=== PATIENT | female | born 2000 | race Two or more races ===

== ENCOUNTER → 2020-08-13 | Outpatient (CLI) | payer OTHER ==
--- NOTE | 2020-08-13 15:14 | RAD ---
EXAM: Ultrasound OB Greater than 14 weeks INDICATION: Reason: Uterine Size Date Discrepancy / Spl. Instructions: / History: TECHNIQUE: Real-time obstetrical ultrasound was performed with permanent freeze-frame documentation. COMPARISON: None. FINDINGS: POSITION: Cephalic HEART RATE: 150 bpm APRIL: 11.6 cm PLACENTA: Posterior CERVICAL LENGTH: 4.8 cm MATERNAL UTERUS: Unremarkable. MATERNAL ADNEXA: Unremarkable. AGE/DATES: Gestational Age by LMP: 22 weeks 5 days Gestation Age by US: 23 weeks 0 days EDC by LMP: 12/12/2020 EDC by US: 12/10/2020 WEIGHT: 543 grams +/- 80 grams PERCENTILE WEIGHT: 42%. BIOMETRIC PARAMETERS: BPD: 5.7 cm corresponding with 23 weeks 3 days HC: 20.6 cm corresponding with 22 weeks 5 days AC: 17.4 cm corresponding with 22 weeks 2 days FL: 4.2 cm corresponding with 23 weeks 4 days ANATOMY: CARDIAC: Normal four chamber heart. UMBILICAL CORD: Normal 3 vessel cord. Normal cord insertion. BRAIN: Unremarkable. NOSE/LIPS: Unremarkable. SPINE: Unremarkable. EXTREMITIES: Unremarkable. STOMACH: Unremarkable. KIDNEYS: Unremarkable. BLADDER: Unremarkable. IMPRESSION: Normal OB ultrasound demonstrating a single viable fetus in cephalic position. Estimated gestational age of 23 weeks 0 days and EDC of December 10, 2020.. Electronically signed by: Jenniffer Granger MD (08/13/2020 3:12 PM) [id number]
== END | disposition home or self-care (01) ==
LOC: US 08:44
PROVIDERS: ATTEND Obstetrics & Gynecology
DX: O26.842 Uterine size-date discrepancy, second trimester (principal); Z3A.23 23 weeks gestation of pregnancy
CPT/HCPCS: 76805

== ENCOUNTER 2020-11-19 00:42 | Observation (INO) | payer OTHER ==
[2020-11-19] MEDS ORDERED: MAG HYDROX/ALUMINUM HYD/SIMETH 30 ML ORAL.SUSP PO PRN (01:00)
[2020-11-19] MEDS ORDERED: ACETAMINOPHEN 325 MG TABLET. PO PRN (01:00)
[2020-11-19] MEDS ORDERED: IV RINGERS,LACTATED 1000ML 1,000 ML IV SCH (01:00)
[2020-11-19 01:17] LABS: BILIRUBIN,URINE NEGATIVE (NEG); CLARITY,URINE CLOUDY; COLOR,URINE YELLOW; NITRITE,URINE NEGATIVE (NEG); PROTEIN,URINE 30 mg/dL (NEG-TRACE)
[2020-11-19 01:23] LABS: AMNIO PT NEGATIVE
[2020-11-19 01:25] LABS: BACTERIA,URINE MANY /HPF (0-FEW); RBC,URINE 0 /HPF (0-2); WBC,URINE >40 /HPF (0-4)
== END 2020-11-19 02:06 | disposition home or self-care (01) ==
LOC: 3 SO LND 00:42
PROVIDERS: ADMIT Obstetrics & Gynecology; ATTEND Obstetrics & Gynecology
DX: O62.9 Abnormality of forces of labor, unspecified (principal); Z3A.36 36 weeks gestation of pregnancy; Z79.899 Other long term (current) drug therapy
CPT/HCPCS: 36415; 59025; 81001; 84112; 87086; G0378; G0379

== ENCOUNTER → 2020-12-02 | Outpatient (CLI) | payer OTHER ==
[~2020-12-02] MED LIST: CEPH500C PO; DOCU-153 PO; IBUP-1027 PO; OXYC1TAB15 PO
== END ==
LOC: LAB 12:54
PROVIDERS: ATTEND Obstetrics & Gynecology
DX: Z20.828 Contact with and (suspected) exposure to other viral communicable diseases (principal)
CPT/HCPCS: U0003

== ENCOUNTER 2020-12-06 05:54 | Inpatient (IN) | payer OTHER ==
[~2020-12-06] VITALS: Ht 160 cm; Wt 108.0 kg
[2020-12-06] MEDS ORDERED: IV RINGERS,LACTATED 1000ML 1,000 ML IV PRN ×2 (06:00)
[2020-12-06] MEDS ORDERED: CITRIC ACID/SODIUM CITRATE 30 ML SOLUTION. PO ONE (06:00)
[2020-12-06 06:48] LABS: HEMATOCRIT 33.9 % (36.0-47.0); HEMOGLOBIN 11.1 g/dL (12.0-15.5); RED BLOOD COUNT 4.32 x10^6/uL (3.50-5.40); RED CELL DISTRIBUTION WIDTH 16.3 % (11.5-14.5); WHITE BLOOD COUNT 8.6 x10^3/uL (4.0-11.0)
--- NOTE | 2020-12-06 06:52 | PDOC1 ---
OB - History Hx of Present Care: Good Care Ultrasounds: Normal mid trimester US Obstetrical Complications: None Medical Complications: None Past Family/Social History * Past Medical, Surgical, Family and Obstetric Histories reviewed from chart. Rubella: Immune RPR/VDRL: Negative GBS Status: Positive HBsAG: Negative OB - Chief Complaint & HPI Date of Admission: Date of Admission: Dec 06, 2020 at 05:54 Chief Complaint/History : 2 Para: 1 EGA: 39 Reason for admission: section Indication for : desires repeat Admission Nurse Assessment Rev: Yes OB - Admission Exam Physical Exam HEENT: Normal Heart: Regular Rate Lungs: Clear Abdomen: Gravid, Non tender, Soft Extremities: Edema Reflexes: Normal Cervical Dilatation: None Effacement: 25% Station: -3 Membranes: Intact Accelerations: Accelerations Present Decelerations: No decelerations Contractions on Admission: None Text A: 39 wks IUP Previous c/s GBS positive P: ADmit repeat c/s. SHARON PRINCE Jr, MD Dec 06, 2020 06:52
[2020-12-06 06:54] VITALS: BP 139/87
[2020-12-06] MEDS ORDERED: ePHEDrine PF IN SALINE 50 MG/10 ML SYRINGE. IV ONE (07:41)
[2020-12-06] MEDS ORDERED: fentaNYL PF VIAL 100 MCG/2 ML VIAL ONE (07:41)
[2020-12-06] MEDS ORDERED: MORPHINE PF 10 MG/10 ML AMPUL. ONE (07:41)
[2020-12-06] MEDS ORDERED: OXYTOCIN 10 UNIT/ML VIAL. ONE (07:41)
[2020-12-06] MEDS ORDERED: PHENYLEPHRINE in 0.9% NACL PF 1 MG/10 ML SYRINGE. IV ONE (07:42)
[2020-12-06] MEDS ORDERED: ONDANSETRON PF 4 MG/2 ML VIAL. ONE (08:06)
--- NOTE | 2020-12-06 08:56 | PDOC4 ---
OB Operative Note Date: Dec 06, 2020 PRE OP DIAGNOSIS: Previoujs C- section POST OP DIAGNOSIS: Previous C- section OPERATION PERFORMED: R [facility] Surgeon Dr. Liao Anesthesia: Regional (Spinal) Blood Loss 600 ml Specimen placenta and OB Findings: Position (Vertex), Sex (Male), (8/9), Weight (8 Lb 9 oz), Nuchal Cord (x1) Complications none Additional Remarks pt. SHARON Kaur Jr, MD Dec 06, 2020 08:56
[2020-12-06] MEDS ORDERED: 0.9 % SODIUM CHLORIDE 10 ML DISP.SYRIN. IV PRN (09:00)
[2020-12-06] MEDS ORDERED: MAG HYDROX/ALUMINUM HYD/SIMETH 30 ML ORAL.SUSP PO PRN (09:00)
[2020-12-06] MEDS ORDERED: ONDANSETRON PF 4 MG/2 ML VIAL. IV PRN (09:00)
[2020-12-06] MEDS ORDERED: ZOLPIDEM 5 MG TABLET. PO PRN (09:00)
[2020-12-06] MEDS ORDERED: OXYTOCIN 30 UNIT/500 ML PREMIX 500 ML IV PRN (09:00)
[2020-12-06] MEDS ORDERED: SIMETHICONE 80 MG TAB.CHEW PO PRN (09:00)
[2020-12-06] MEDS ORDERED: diphenhydrAMINE ORAL ELIXIR 12.5 MG/5 ML ML PO PRN (09:00)
[2020-12-06] MEDS: MULTIVITAMIN with MINERAL TABLET. PO SCH (09:00)
[2020-12-06] MEDS ORDERED: OXYTOCIN PREMIX 30 UNIT/500 ML NS BAG. IV ONE (09:15)
--- NOTE | 2020-12-06 09:16 | OP ---
DATE OF SURGERY: 12/06/2020 PREOPERATIVE DIAGNOSES: 1. A 39 weeks intrauterine . 2. Previous section. POSTOPERATIVE DIAGNOSES: 1. A 39 weeks intrauterine . 2. Previous section. PROCEDURE: Repeat low transverse section. SURGEON: Sharon Liao MD ANESTHESIA: Spinal. ESTIMATED BLOOD LOSS: 600 mL. COMPLICATIONS: None. FINDINGS: Viable male infant, Apgars 8 and 9, weight 8 pounds 9 ounces, nuchal cord x 1, 3-vessel cord placenta delivered manually intact. SUMMARY: A 20-year-old 2, para 1 at 39 weeks, presented for repeat section. She was counseled on risks, benefits and expectations and voiced clear understanding to proceed. DESCRIPTION OF PROCEDURE: The patient was taken to surgery suite and placed in dorsal supine position. She was prepped with ChloraPrep and draped in sterile fashion. After adequate anesthesia, Pfannenstiel skin incision was made with scalpel down to and through the fascia. Fascia was excised laterally using curved Noguera scissors. The fascia was incised laterally using curved Noguera scissors. The superior edge of fascia was grasped with two Donavon clamps and dissected free of the abdominal rectus muscles using blunt dissection along with Bovie cautery. The same process took place inferiorly. The abdominal rectus muscles were then dissected using sharp dissection using curved Noguera scissors as well as the peritoneum. The Olaf ring retractor was then placed. A low transverse hysterotomy incision was made with scalpel down to the amniotic sac. Hysterotomy incision was extended laterally and superiorly digitally. Amniotomy was performed with Allis clamp which elicited moderate amount of clear fluid. With the aid of fundal pressure, the 's head was delivered in a smooth atraumatic manner. Nuchal cord x 1 was visualized and reduced. With additional fundal pressure, the anterior shoulder was delivered followed by posterior shoulder and rest of the male infant was delivered. The infant was suctioned with bulb syringe orally and nasally, umbilical cord was clamped twice and cut. Viable male infant was handed to waiting nursing staff. Umbilical cord blood was then obtained. Three-vessel cord placenta was delivered manually intact. The uterus was then exteriorized and cleared of clot and debris with moist lap. Hysterotomy incision was reapproximated using #1 Vicryl suture in running locked fashion, imbricated layer of #1 Vicryl suture was utilized in a running fashion for better hemostasis. The uterus palpated firm. Fallopian tubes and ovaries appeared normal bilaterally. Posterior cul-de-sac was cleared of clot and debris with moist lap. The uterus was then returned to the abdomen. The pericolic gutters were cleared of clot and debris with moist lap. Hysterotomy incision was reviewed. There was a Vkvxpn-pe-pucgo suture placed in the midline of the hysterotomy incision for better hemostasis. The Olaf ring retractor was removed. The peritoneum was reapproximated using 1 Vicryl suture in running fashion. Abdominal rectus muscle was reapproximated using 1 Vicryl suture in running fashion. Fascia was reapproximated using Stratafix in running fashion. The subcutaneous space was reapproximated using 1 Vicryl suture in running fashion. The skin was reapproximated using 4-0 Vicryl suture in subcuticular manner. The patient tolerated the procedure well and was taken to recovery room in stable condition. Sponge and needle count correct x 3. SHARON LIAO MD DR: SHLOMO/mike JOB#: [id number] / [id number]
[2020-12-06] MEDS: KETOROLAC 30 MG/ML VIAL. IV PRN ×2 (10:25→21:23)
[2020-12-06] MEDS ORDERED: KETOROLAC 30 MG/ML VIAL. IV PRN (11:00)
[2020-12-06 11:15] VITALS: BP 133/72
[2020-12-06 11:45] VITALS: BP 131/81
[2020-12-06 13:00] VITALS: BP 129/83
[2020-12-06 18:27] VITALS: BP 132/78
[2020-12-06 21:00] VITALS: BP 135/85
[2020-12-07 01:30] VITALS: BP 118/66
[2020-12-07 05:15] VITALS: BP 113/64
--- NOTE | 2020-12-07 07:09 | PDOC ---
OB Progress Note Date of Service 12/07/20 Time of Evaluation 0705 Notes Pt. feeling well. Pain controlled. No complaints. Lab Laboratory Tests Test 12/06/20 06:30 White Blood Count 8.6 x10^3/uL (4.0-11.0) Red Blood Count 4.32 x10^6/uL (3.50-5.40) Hemoglobin 11.1 g/dL (12.0-15.5) Hematocrit 33.9 % (36.0-47.0) Mean Corpuscular Volume 79 fL (79-100) Mean Corpuscular Hemoglobin 26 pg (25-35) Mean Corpuscular Hemoglobin Concent 33 g/dL (31-37) Red Cell Distribution Width 16.3 % (11.5-14.5) Platelet Count 269 x10^3/uL (140-400) Treponema pallidum Antibody Nonreactive (Nonreactive) Medications Current Medications Ringer's Solution 1,000 ml @ 1,000 mls/hr Q1H PRN IV hydration Last administered on 12/06/20at 18:15; Start 12/06/20 at 06:00 Ringer's Solution 1,000 ml @ 125 mls/hr Q8H PRN IV hydration; Start 12/06/20 at 06:00 Cefazolin Sodium/ Dextrose 50 ml @ 100 mls/hr 1X ONCE IV ; Start 12/06/20 at 06:00; Stop 12/06/20 at 06:29; Status DC Citric Acid/ Sodium Citrate (Bicitra) 30 ml 1X ONCE PO Last administered on 12/06/20at 07:17; Start 12/06/20 at 06:00; Stop 12/06/20 at 06:02; Status DC Ephedrine Sulfate (ePHEDrine PF IN SALINE SYRINGE) 50 mg STK-MED ONCE IV ; Start 12/06/20 at 07:41; Stop 12/06/20 at 07:41; Status DC Fentanyl Citrate (Fentanyl 2ml Vial) 100 mcg STK-MED ONCE .ROUTE ; Start 12/06/20 at 07:41; Stop 12/06/20 at 07:41; Status DC Morphine Sulfate (Morphine Preservative Free) 10 mg STK-MED ONCE .ROUTE ; Start 12/06/20 at 07:41; Stop 12/06/20 at 07:41; Status DC Oxytocin (Pitocin) 10 unit STK-MED ONCE .ROUTE ; Start 12/06/20 at 07:41; Stop 12/06/20 at 07:42; Status DC Phenylephrine HCl (PHENYLEPHRINE in 0.9% NACL PF) 1 mg STK-MED ONCE IV ; Start 12/06/20 at 07:42; Stop 12/06/20 at 07:42; Status DC Ondansetron HCl (Zofran) 4 mg STK-MED ONCE .ROUTE ; Start 12/06/20 at 08:06; Stop 12/06/20 at 08:07; Status DC Sodium Chloride (Normal Saline Flush) 3 ml QSHIFT PRN IV AFTER MEDS AND BLOOD DRAWS; Start 12/06/20 at 09:00 Oxytocin 500 ml @ 125 mls/hr CONT PRN IV EXCESSIVE POST- BLEEDING; Start 12/06/20 at 09:00; Stop 12/06/20 at 16:59; Status DC Ibuprofen (Motrin) 800 mg PRN Q8HRS PRN PO INFLAMMATION; Start 12/06/20 at 09:00 Ondansetron HCl (Zofran) 4 mg PRN Q6HRS PRN IV NAUSEA/VOMITING; Start 12/06/20 at 09:00 Docusate Sodium (Colace) 100 mg PRN BID PRN PO CONSTIPATION; Start 12/06/20 at 09:00 Al Hydroxide/Mg Hydroxide (Mylanta Plus Xs) 30 ml PRN Q4HRS PRN PO HEARTBURN / GAS; Start 12/06/20 at 09:00 Simethicone (Gas-X) 80 mg PRN AFTMEALHC PRN PO GAS / BLOATING; Start 12/06/20 at 09:00 Diphenhydramine HCl (Benadryl Oral Elixir) 12.5 mg PRN Q6HRS PRN PO ITCHING; Start 12/06/20 at 09:00 Ferrous Sulfate (Feosol) 325 mg BIDWMEALS PO ; Start 12/06/20 at 17:00 Zolpidem Tartrate (Ambien) 5 mg PRN QHS PRN PO INSOMNIA, MAY REPEAT X1; Start 12/06/20 at 09:00 Oxycodone/ Acetaminophen (Percocet 5/325) 2 tab PRN Q4HRS PRN PO MODERATE PAIN, SEVERE PAIN; Start 12/06/20 at 09:00 Ketorolac Tromethamine (Toradol 30mg Vial) 30 mg PRN Q6HRS PRN IV INFLAMMATION/PAIN Last administered on 12/06/20at 21:23; Start 12/06/20 at 09:00; Stop 12/11/20 at 08:59 Multivitamins (Thera M Plus) 1 tab DAILY PO ; Start 12/06/20 at 09:00 Ketorolac Tromethamine (Toradol 30mg Vial) 30 mg PRN Q6HRS PRN IV PAIN; Start 12/06/20 at 11:00; Stop 12/11/20 at 10:59 Exam ABd: soft, mild tenderness, fundus firm Bandage removed. Incision site: clean, dry and intact Assessment POD#1 s/p repeat c/s Plan of Care: Continue current Tx, Mgmt SHARON PRINCE Jr, MD Dec 07, 2020 07:09
[2020-12-07] MEDS: FERROUS SULFATE 325 MG TABLET. PO SCH ×2 (08:00→17:00)
[2020-12-07 08:12] LABS: BASO # 0.1 x10^3/uL (0.0-0.2); BASO % 1 % (0-3); EOS # 0.2 x10^3/uL (0.0-0.7); EOS % 2 % (0-3); HEMATOCRIT 29.8 % (36.0-47.0); HEMOGLOBIN 9.8 g/dL (12.0-15.5); LYMPH % 22 % (24-48); MEAN CORPUSCULAR HEMOGLOBIN 26 pg (25-35); MEAN CORPUSCULAR HGB CONC 33 g/dL (31-37); MEAN CORPUSCULAR VOLUME 78 fL (79-100); MONO # 0.6 x10^3/uL (0.0-1.1); MONO % 7 % (0-9); NEUT # 6.2 x10^3/uL (1.8-7.7); NEUT % 69 % (31-73); PLATELET COUNT 243 x10^3/uL (140-400); RED BLOOD COUNT 3.82 x10^6/uL (3.50-5.40); RED CELL DISTRIBUTION WIDTH 16.5 % (11.5-14.5)
[2020-12-07] MEDS: DOCUSATE SODIUM 100 MG CAPSULE. PO PRN (08:14)
[2020-12-07] MEDS: IBUPROFEN 400 MG TABLET. PO PRN ×2 (08:15→17:10)
[2020-12-07] MEDS: MULTIVITAMIN with MINERAL TABLET. PO SCH (08:15)
[2020-12-07] MEDS: oxyCODONE/APAP 5/325 1 TAB TABLET PO PRN ×2 (08:16→17:10)
[2020-12-07 12:15] VITALS: BP 133/90
[2020-12-07 18:13] VITALS: BP 145/87
--- NOTE | 2020-12-07 18:30 | NUR ---
Ibuprofen 800mg and 1 percocet scanned and given to patient but did not save.
[2020-12-07 22:52] VITALS: BP 129/88
[2020-12-08 06:08] VITALS: BP 130/86
[2020-12-08] MEDS: FERROUS SULFATE 325 MG TABLET. PO SCH ×2 (08:00→17:00)
[2020-12-08] MEDS: DOCUSATE SODIUM 100 MG CAPSULE. PO PRN (08:05)
[2020-12-08] MEDS: IBUPROFEN 400 MG TABLET. PO PRN ×2 (08:05→18:02)
[2020-12-08] MEDS: MULTIVITAMIN with MINERAL TABLET. PO SCH (08:05)
[2020-12-08] MEDS: oxyCODONE/APAP 5/325 1 TAB TABLET PO PRN ×3 (08:06→18:02)
[2020-12-08 10:20] VITALS: BP 130/88
[2020-12-08 16:50] VITALS: BP 135/85
--- NOTE | 2020-12-08 17:42 | PDOC3 ---
OB DISCHARGE SUMMARY DATE OF ADMISSION: 12/06/20 DATE OF DISCHARGE: 12/08/20 REASON FOR ADMISSION: section INTRAPARTUM PROCEDURES: : Low Cerv Trans DISCHARGE DIAGNOSIS: Term Delivered DISCHARGE INFORMATION: Activity (ad zaki), Diet (regular), Instructions (pelvic rest x 6 wks, no driving x 2 wks, no lifting > 20 lbs. x 4 wks) HOSPITAL COURSE Term gestation delivered section without complications. SHARON PRINCE Jr, MD Dec 08, 2020 17:42
[2020-12-08] MEDS ORDERED: IBUP-1027 PO (17:45)
[2020-12-08] MEDS ORDERED: DOCU-153 PO (17:45)
[2020-12-08] MEDS ORDERED: OXYC1TAB15 PO (17:45)
--- NOTE | 2020-12-08 17:45 | DISCH ---
DISCHARGE INSTRUCTIONS Condition on Discharge Condition on Discharge: Stable Activity After Discharge Activity Instructions for Disc: Activity as tolerated Lifting Instructions after Dis: No heavy lifting Driving Instructions after Dis: No driving for 2 weeks Diet after Discharge Diet after Discharge: Regular Contacting the DRNito after DC Call your doctor for: Concerns you may have Follow-Up Follow up with: Dr. Liao in 2 wks SHARON LIAO Jr, MD Dec 08, 2020 17:45
--- NOTE | 2020-12-08 18:30 | NUR ---
Discharge and follow up instructions reviewed and given to pt along with Rx X3. Pt denied any questions or complaints at this time. Pt taken out of the hospital per W/C with staff by her side.
== END 2020-12-08 18:30 | disposition home or self-care (01) | DRG 787 ==
LOC: 3 SO LND 05:54 → 3 NORTH 11:42
PROVIDERS: ADMIT Obstetrics & Gynecology; ATTEND Obstetrics & Gynecology
PROC: 10D00Z1 Extraction of Products of Conception, Low, Open Approach (ICD-10-PCS; principal; 2020-12-06)
DX: O34.211 Maternal care for low transverse scar from previous cesarean delivery (principal); O98.82 Other maternal infectious and parasitic diseases complicating childbirth; Z3A.39 39 weeks gestation of pregnancy; O99.824 Streptococcus B carrier state complicating childbirth; Z37.0 Single live birth; O69.81X0 Labor and delivery complicated by cord around neck, without compression, not applicable or unspecified; B95.1 Streptococcus, group B, as the cause of diseases classified elsewhere
CPT/HCPCS: 36415; 85025; 85027; 86592; 86850; 86900; 86901; J1885; J2274; J2370; J2405; J2590; J3010; J7120; G0378

== ENCOUNTER 2020-12-31 22:56 | Emergency (ER) | payer OTHER ==
[~2020-12-31] VITALS: Ht 160 cm; Wt 95.5 kg
[~2020-12-31 22:56] MED LIST changes: -CEPH500C PO
[2020-12-31 23:43] LABS: BASO % 1 % (0-3); EOS # 0.7 x10^3/uL (0.0-0.7); EOS % 8 % (0-3); HEMATOCRIT 37.8 % (36.0-47.0); HEMOGLOBIN 12.2 g/dL (12.0-15.5); LYMPH # 3.4 x10^3/uL (1.0-4.8); LYMPH % 36 % (24-48); MEAN CORPUSCULAR HEMOGLOBIN 25 pg (25-35); MEAN CORPUSCULAR HGB CONC 32 g/dL (31-37); MEAN CORPUSCULAR VOLUME 79 fL (79-100); MONO # 0.5 x10^3/uL (0.0-1.1); MONO % 5 % (0-9); NEUT # 4.8 x10^3/uL (1.8-7.7); NEUT % 51 % (31-73); PLATELET COUNT 326 x10^3/uL (140-400); RED CELL DISTRIBUTION WIDTH 16.6 % (11.5-14.5); WHITE BLOOD COUNT 9.5 x10^3/uL (4.0-11.0)
[2020-12-31 23:51] LABS: CALCIUM 9.1 mg/dL (8.5-10.1); CREATININE 0.7 mg/dL (0.6-1.0); GFR 106.7; POTASSIUM 4.1 mmol/L (3.5-5.1)
--- NOTE | 2020-12-31 23:54 | PHYS DOC ---
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 She had a and states that today she noticed that when she would cough or sneeze she would have pain at the site. There is on the very end on the right side of the slightly opened area with purulent drainage and pinkness and then down towards the other side of the there is a pink very small area. There is no cellulitis. She denies fever, abdominal pain, nausea, vomiting, back pain, abnormal vaginal discharge. Patient rates her pain a 10 out of 10 and states at times it is intermittent intermittent and sharp especially when she coughs or sneezes. (MARLY WHITE SUPERVISOR CAPACITOR PROCESSING) Review of Systems: Review of Systems: Constitutional: Denies fever or chills. [] Eyes: Denies change in visual acuity. [] HENT: Denies nasal congestion or sore throat. [] Respiratory: Denies cough or shortness of breath. [] Cardiovascular: Denies chest pain or edema. [] GI: + abdominal pain, denies nausea, vomiting, bloody stools or diarrhea. [] : Denies dysuria. [] Musculoskeletal: Denies back pain or joint pain. [] Integument: Denies rash. + surgical incision drainage [] Neurologic: Denies headache, focal weakness or sensory changes. [] Endocrine: Denies polyuria or polydipsia. [] Lymphatic: Denies swollen glands. [] Psychiatric: Denies depression or anxiety. [] (MARLY WHITE SUPERVISOR [employer]AC[employer]OR PROCESSING) Heart Score: Risk Factors: Risk Factors: DM, Current or recent (<one month) smoker, HTN, HLP, family history of CAD, obesity. Risk Scores: Score 0 - 3: 2.5% MACE over next 6 weeks - Discharge Home Score 4 - 6: 20.3% MACE over next 6 weeks - Admit for Clinical Observation Score 7 - 10: 72.7% MACE over next 6 weeks - Early Invasive Strategies (MARLY WHITE APRN) Allergies: Allergies: Allergies Coded Allergies Type Severity Reaction Last Updated Verified No Known Drug Allergies 11/19/20 No (MARLY WHITE APRN) Physical Exam: PE: Constitutional: Well developed, well nourished, no acute distress, non-toxic appearance. [] HENT: Normocephalic, atraumatic, bilateral external ears normal, oropharynx moist, no oral exudates, nose normal. [] Eyes: PERRLA, EOMI, conjunctiva normal, no discharge. [] Neck: Normal range of motion, no tenderness, supple, no stridor. [] Cardiovascular:Heart rate regular rhythm, no murmur [] Lungs & Thorax: Bilateral breath sounds clear to auscultation [] Abdomen: Bowel sounds normal, soft, tenderness, no masses, no pulsatile masses. [] Skin: Warm, dry, no erythema, no rash. Right side of incision slightly open pink with discharge. The other end of the towards the left side is a pink and area but is not open and there is no drainage. [] Back: No tenderness, no CVA tenderness. [] Extremities: No tenderness, no cyanosis, no clubbing, ROM intact, no edema. [] Neurologic: Alert and oriented X 3, normal motor function, normal sensory function, no focal deficits noted. [] Psychologic: Affect normal, judgement normal, mood normal. [] (MARLY WHITE APRN) Current Patient Data: Labs: Laboratory Tests Test 12/31/20 23:30 White Blood Count 9.5 x10^3/uL (4.0-11.0) Red Blood Count 4.80 x10^6/uL (3.50-5.40) Hemoglobin 12.2 g/dL (12.0-15.5) Hematocrit 37.8 % (36.0-47.0) Mean Corpuscular Volume 79 fL (79-100) Mean Corpuscular Hemoglobin 25 pg (25-35) Mean Corpuscular Hemoglobin Concent 32 g/dL (31-37) Red Cell Distribution Width 16.6 % (11.5-14.5) H Platelet Count 326 x10^3/uL (140-400) Neutrophils (%) (Auto) 51 % (31-73) Lymphocytes (%) (Auto) 36 % (24-48) Monocytes (%) (Auto) 5 % (0-9) Eosinophils (%) (Auto) 8 % (0-3) H Basophils (%) (Auto) 1 % (0-3) Neutrophils # (Auto) 4.8 x10^3/uL (1.8-7.7) Lymphocytes # (Auto) 3.4 x10^3/uL (1.0-4.8) Monocytes # (Auto) 0.5 x10^3/uL (0.0-1.1) Eosinophils # (Auto) 0.7 x10^3/uL (0.0-0.7) Basophils # (Auto) 0.0 x10^3/uL (0.0-0.2) Laboratory Tests 12/31/20 23:30 Vital Signs: Vital Signs Date Time Temp Pulse Resp B/P (MAP) Pulse Ox O2 Delivery O2 Flow Rate FiO2 12/31/20 22:57 98.0 89 18 121/56 (77) 99 Room Air 98.0 (MARLY WHITE APRN) EKG: EKG: [] (MARLY WHITE APRN) Radiology/Procedures: Radiology/Procedures: [] (MARLY WHITE APRN) Course & Med Decision Making: Course & Med Decision Making Pertinent Labs and Imaging studies reviewed. (See chart for details) See HPI. Abdomen is soft and slightly tender with palpation. Afebrile. Ambulatory with a steady gait. Alert and oriented x4. Speaks in full clear se ntences. Skin pink warm and dry. 0011: Patient is reported off to Dr. Bach. [] (MARLY WHITE APRN) Course & Med Decision Making Concern for very mild wound dehiscence (< 0.5cm) from right lateral aspect of surgical on December 06 with no surrounding crepitus, fluctuance, induration or red erythematous rash, pt with no underlying ttp. Patient does report worsening pain from her site with coughing and sneezing. Denies any underlying abdominal pain, back pain, vaginal discharge, dysuria, hematuria, flank pain, fever, nausea, vomiting. There are 3-5 RBCs and mild blood on urinalysis, moderate leukocyte esterase and 11-20 WBCs. Patient with no flank pain, abdominal or back pain and is normotensive. Patient afebrile with no leukocytosis. Will treat UTI with Keflex and have pt follow-up with her primary care physician or [facility] in 48 to 72 hours for c/s scar wound check. Will discharge home with strict ED return precautions were given for abdominal pain, back pain, fever, nausea, vomiting or flank pain (pyelonephritis, sepsis, worsening rash). Encouraged urgent outpatient follow-up with PMD and [facility]. Life-threatening processes were considered but are low suspicion at this time, given history, physical exam and ED workup. Pt was educated on all prescription medications and adverse effects. All patient's questions were answered and pt was stable at time of discharge. Life/limb-threatening differential includes but is not limited to, erythema multiforme, díaz-ron syndrome, toxic epidermal necrolysis, staphylococcal scalded skin syndrome, necrotizing fasciitis/myositis/cellulitis, purpura fulminans, heparin or warfarin induced skin necrosis, angioedema, anaphylaxis drug rash, disseminated intravascular coagulation, disseminated gonococcal disease, vasculitis, septicemia, petechial disorder or coagulopathy, endometritis, intra-abdominal abscess, AAA/aortis dissection or life-threatening burn requiring burn center management or escharotomy. I spoken with the patient and her caregivers. I explained the patient's condition, diagnoses and treatment plan based on the information available to me at this time. I have answered the patient and her caregiver's questions and addressed any concerns. The patient and her caregivers have a good understanding of patient's diagnosis, condition and treatment plan as can be expected at this point. Vital signs have been stable. Patient's condition is stable and appropriate for discharge from the emergency department. Patient will pursue further outpatient evaluation with primary care physician or other designated or consulting physician as outlined in the discharge instructions. The patient and/or caregivers are agreeable to this plan of care and follow-up instructions have been explained in detail. The patient and/or caregivers have received these instructions in written form and have expressed an understanding of the discharge instructions. The patient and/or caregivers are aware that any significant change of condition or worsening of symptoms should prompt immediate return to this or the closest emergency department or call to 911. (AMANDA BACH DO) Dragon Disclaimer: Dragon Disclaimer: This electronic medical record was generated, in whole or in part, using a voice recognition dictation system. (MARLY WHITE APRN) Departure Departure Impression: Primary Impression: Wound dehiscence, Additional Impression: UTI (urinary tract infection) Disposition: 01 DC HOME SELF CARE/HOMELESS Condition: STABLE Referrals: NO PCP (PCP) FOLLOW UP WITH FAMILY MEDICINE: Family Medicine Address: [address], [facility] [address] [place] [address] Patient Instructions: Urinary Tract Infection, Wound Dehiscence Additional Instructions: FOLLOW UP WITH [facility]: Dr. Liao in 2-3 days for wound check [facility] Address: [address], [facility] [address] [place] [address] EMERGENCY DEPARTMENT GENERAL DISCHARGE INSTRUCTIONS Thank you for coming to [facility] Emergency Department (ED) today and trusting us with you care. We trust that you had a positive experience in our Emergency Department. If you wish to speak to the department management, you may call the Director at [phone]. YOUR FOLLOW UP INSTRUCTIONS ARE FOLLOWS: 1. Do you have a private Doctor? If you do not have a private doctor, please ask for a resource list of physicians or clinics that may be able to assist you with follow up care. 2. The Emergency Physicain has interpreted your x-rays. The X-Ray specialist will also review them. If there is a change in the findings, you will be notified in 48 hours when at all possible. 3. A lab test or culture has been done, your results will be reviewed and you will be notified if you need a change in treatment. ADDITIONAL INSTRUCTIONS AND INFORMATION: 1. Your care today has been supervised by a physician who is specially trained in emergency care. Many problems require more than one evaluation for a complete diagnosis and treatment. We recommend that you schedule your follow up appointment as recommended to ensure complete treatment of you illness or injury. If you are unable to obtain follow up care and continue to have a problem, or if your condition worsens, we recommend that you return to the ED. 2. We are not able to safely determine your condition over the phone nor are we able to give sound medical advice over the phone. For these safety reasons, if you call for medical advice we will ask you to come to the ED for further evaluation. 3. If you have any questions regarding these discharge instructions please call the ED at [phone]. SAFETY INFORMATION: In the interest of safety, wellness, and injury prevention; we encourage you to wear your sealbelt, if you smoke; quite smoking, and we encourage family to use a protective helmet for bicycling and other sporting events that present an increased risk for head injury. IF YOUR SYMPTOMS WORSEN OR NEW SYMPTOMS DEVELOP, OR YOU HAVE CONCERNS ABOUT YOUR CONDITION; OR IF YOUR CONDITION WORSENS WHILE YOU ARE WAITING FOR YOUR FOLLOW UP APPOINTMENT; EITHER CONTACT YOUR PRIMARY CARE DOCTOR, THE PHYSICIAN WHOSE NAME AND NUMBER YOU WERE GIVEN, OR RETURN TO THE ED IMMEDIATELY. Scripts Cephalexin (CEPHALEXIN) 500 Mg Capsule 1 CAP PO QID for 10 Days, #40 CAP Prov: AMANDA BACH DO 01/01/21 MARLY WHITE APRN Dec 31, 2020 23:54 AMANDA BACH DO Jan 01, 2021 01:31
[2020-12-31 23:57] LABS: ALBUMIN 3.4 g/dL (3.4-5.0); ALBUMIN/GLOBULIN RATIO 0.9 (1.0-1.7); TOTAL BILIRUBIN 0.6 mg/dL (0.2-1.0); TOTAL PROTEIN 7.3 g/dL (6.4-8.2)
[2021-01-01 00:32] LABS: BILIRUBIN,URINE NEGATIVE (NEG); CLARITY,URINE CLEAR; COLOR,URINE YELLOW; NITRITE,URINE NEGATIVE (NEG); PH,URINE 5.5 (<5.0-8.0); PROTEIN,URINE NEGATIVE (NEG-TRACE); UROBILINOGEN,URINE 0.2 mg/dL (0.2 mg/dL)
[2021-01-01 00:44] LABS: BACTERIA,URINE FEW /HPF (0-FEW)
[2021-01-01 00:45] LABS: AMORPHOUS SEDIMENT,UR PRESENT /HPF
[2021-01-01 01:02] VITALS: BP 131/81
[2021-01-01] MEDS ORDERED: CEPH500C PO (01:30)
== END 2021-01-01 01:52 | disposition home or self-care (01) ==
LOC: ER 22:56
DX: O90.0 Disruption of cesarean delivery wound (principal); O86.20 Urinary tract infection following delivery, unspecified
CPT/HCPCS: 36415; 80053; 81001; 83605; 85025; 87040; 87086; 99285; G0480